=== PATIENT | male | born 1940 ===

== ENCOUNTER 2018-01-26 06:25 | Day surgery (SDC) | payer OTHER ==
[~2018-01-26 06:25] MED LIST: AMIODARONE HCL200 MG; ASA81 MG; COZAAR100 MG; METFORMIN HCL850 MG; OSEL75CA PO
== END 2018-01-26 10:15 | disposition home or self-care (01) ==
LOC: AMB-ENDOS 06:25
DX: K57.30 Diverticulosis of large intestine without perforation or abscess without bleeding (principal); K64.8 Other hemorrhoids; D12.2 Benign neoplasm of ascending colon; Z12.11 Encounter for screening for malignant neoplasm of colon